=== PATIENT | female | born 1950 | race Caucasian/White ===

== ENCOUNTER 2022-06-15 10:47 | Emergency (ER) | payer MEDICARE ==
[~2022-06-15] VITALS: Ht 162.6 cm; Wt 65.9 kg
[2022-06-15] MEDS ORDERED: ELIQUIS5 MG PO (11:04)
[2022-06-15] MEDS ORDERED: LEXAPRO5 MG PO (11:04)
[2022-06-15] MEDS ORDERED: HYDROXYURE500 MG/CAP (11:06)
[2022-06-15 12:14] VITALS: BP 124/68
== END 2022-06-15 12:20 | disposition home or self-care (01) ==
LOC: ED 10:47
DX: S52.532A Colles' fracture of left radius, initial encounter for closed fracture (principal); S52.602A Unspecified fracture of lower end of left ulna, initial encounter for closed fracture; Z86.718 Personal history of other venous thrombosis and embolism; Z28.310 Unvaccinated for COVID-19; Z79.01 Long term (current) use of anticoagulants; W18.39XA Other fall on same level, initial encounter; Y92.59 Other trade areas as the place of occurrence of the external cause; Y99.0 Civilian activity done for income or pay

== ENCOUNTER 2022-08-03 09:00 | Outpatient (RCR) | payer MEDICARE ==
[~2022-08-03 09:00] MED LIST: ELIQUIS5 MG PO; HYDROXYURE500 MG/CAP; LEXAPRO5 MG PO
== END 2022-08-12 | disposition home or self-care (01) ==
LOC: OT
DX: S52.615D Nondisplaced fracture of left ulna styloid process, subsequent encounter for closed fracture with routine healing (principal); S52.591D Other fractures of lower end of right radius, subsequent encounter for closed fracture with routine healing

== ENCOUNTER 2023-09-25 10:31 | Outpatient (RCR) | payer MEDICARE | END 2023-10-13 | disposition home or self-care (01) | LOC: PT | DX: M76.32 Iliotibial band syndrome, left leg (principal) ==

== ENCOUNTER → 2023-12-26 | Outpatient (CLI) | payer MEDICARE ==
[2023-12-26 10:41] LABS: BASO # 0.03 K/mm3 (0.02-0.10); EOS # 0.03 K/mm3 (0.04-0.40); EOS % 0.6 % (1.0-5.0); HEMATOCRIT 37.4 % (37.0-47.0); HEMOGLOBIN 12.7 g/dL (12.5-16.0); LYMPH# 0.98 K/mm3 (1.50-4.00); MEAN CELL VOLUME 127 fl (78-100); MEAN CORPUSCULAR HEMOGLOBIN 43 pg (27-31); MEAN CORPUSCULAR HGB CONC 34 g/dL (33-37); MEAN PLATELET VOLUME 10.2 fl (7.4-10.4); MONO # 0.49 K/mm3 (0.20-0.80); NEU # 3.18 K/mm3 (1.40-6.50); PLATELET COUNT 433 K/mm3 (130-400); RED BLOOD COUNT 2.95 M/mm3 (4.10-5.30); RED CELL DISTRIBUTION WIDTH 14.1 % (11.5-14.5); WHITE BLOOD COUNT 4.8 K/mm3 (4.8-10.8)
== END ==
LOC: LAB 10:26
PROVIDERS: Internal Medicine
DX: D47.3 Essential (hemorrhagic) thrombocythemia (principal); K90.9 Intestinal malabsorption, unspecified

== ENCOUNTER 2024-01-29 09:10 | Outpatient (RCR) | payer MEDICARE | END 2024-02-12 | disposition home or self-care (01) | LOC: PT | DX: M25.552 Pain in left hip (principal); Z98.890 Other specified postprocedural states ==

== ENCOUNTER 2024-02-07 09:10 | Outpatient (RCR) | payer MEDICARE ==
[2024-01-17 11:11] VITALS: BP 126/80
[2024-01-24 11:29] VITALS: BP 129/83
[~2024-02-07] VITALS: Ht 162.6 cm; Wt 65.9 kg
[2024-02-07 09:33] VITALS: BP 113/70
== END 2024-02-12 | disposition home or self-care (01) ==
LOC: AMSURD
DX: E53.8 Deficiency of other specified B group vitamins (principal)
CPT/HCPCS: J3420

== ENCOUNTER 2024-02-14 08:00 | Outpatient (RCR) | payer MEDICARE | END 2024-03-14 | disposition home or self-care (01) | LOC: PT | DX: Z98.890 Other specified postprocedural states (principal) ==

== ENCOUNTER 2024-03-04 11:02 | Outpatient (RCR) | payer MEDICARE ==
[2024-02-21 11:22] VITALS: BP 136/68
[~2024-03-04] VITALS: Ht 162.6 cm; Wt 65.9 kg
[2024-03-04 11:20] VITALS: BP 123/66
== END 2024-03-14 | disposition home or self-care (01) ==
LOC: AMSURD
DX: Z51.81 Encounter for therapeutic drug level monitoring (principal); E53.8 Deficiency of other specified B group vitamins
CPT/HCPCS: J3420